=== PATIENT | female | born 1935 | race Caucasian/White ===

== ENCOUNTER 2023-08-11 12:59 | Emergency (ER) | payer MEDICARE, BC, SELFPAY ==
[2023-08-11 13:02] VITALS: BP 175/95
[2023-08-11] MEDS: ADACEL 0.5 ML IM (13:59)
--- NOTE | 2023-08-11 14:27 | ED.GENMED ---
History of Present Illness
General
Chief Complaint: Head Injury
Source: patient, ambulance crew and jail
Exam Limitations: none
Time Seen by Provider: 08/11/23 13:06
Nursing documentation reviewed up to this point in time: agreed with
Travel History
Have you had any contact with someone who has COVID-19?: No
Do you have any symptoms of coronavirus? Fever > 100 degrees, chills, cough, shortness of breath, sore throat, loss of taste or smell, muscle aches, or headache?: No
History of Present Illness
History of Present Illness:
88-year-old female with past medical history of hyperlipidemia, memory loss presenting to the emergency department after she tripped on a curb outside fell on the carpet unable to break her fall with her arms and did hit her left forehead did not
lose consciousness denies taking blood thinners denies significant symptoms at this time other than some achiness to the left forehead where she hit her head. Denies change in vision neck pain numbness weakness
Past History
Past History
ED Past Medical History: Hypothyroidism and Other (OA)
ED Past Surgical History: Orthopedic and Other (Cataracts)
Social History
Tobacco: Non-smoker
Alcohol: None
Drug: None
Personal:
Living: alone
Employment: Retired
Review of Systems
Review of Systems
Allergies reviewed?: Yes
All Other Systems: ROS reviewed and negative except as documented in HPI and ROS
Phy Exam
Physical Exam
Physical Exam:
GENERAL: Alert , in no apparent distress
EYE: pupils equal and reactive
NECK: Supple, no significant adenopathy.
ENT: Laceration to left forehead roughly 1 cm in length some small mount bleeding from the area, o/p clr, mmm.
CARDIAC: Regular rate and rhythm .
LUNGS: Clear breath sounds bilaterally, no acute respiratory distress, no wheezes/rales/rhonchi
ABDOMEN: Soft, without focal tenderness, no r/g, no cvat
NEUROLOGICAL: Alert and oriented, no focal neuro deficits 5-5 upper and lower extremity strength normal sensation were palpated bilaterally normal finger-nose intervention no pronator drift
SKIN: Warm and dry, skin intact.
MUSCULOSKELETAL: No edema, well perfused.
PSYCH: Normal and appropriate interaction.
Course
Orders/Labs/Results
Orders:
Orders
08/11/23 13:17
CT Head W/o Iv Contrast Urgent
Comment:
Reason For Exam: fall hit head
Tetanus/Diphth/Acelpertussis [Adacel] 0.5 ml IM .ONCE ONE
Vital Signs
Initial and Last Documented VS:
Initial Vital Signs
Temp Pulse Resp BP Pulse Ox
98.1 F 105 18 175/95 95
08/11/23 13:02 08/11/23 13:02 08/11/23 13:02 08/11/23 13:02 08/11/23 13:02
Last Documented Vital Signs
Temp Pulse Resp BP Pulse Ox
98.1 F 105 18 175/95 95
08/11/23 13:02 08/11/23 13:02 08/11/23 13:02 08/11/23 13:02 08/11/23 13:02
Procedures
Laceration Closure
Left Forehead:
Status of Wound: clean
Size of Wound in cm: 1
Description of Wound Edges: ragged and surrounded by abrasion
Preparation: cleaned with saline
Anesthesia: 1% Lidocaine with epi
Revision/Debridement: routine- no revision and irrigate-direct pressure
Wound exploration: explored to base- no FB and no tendon involvement
Type of Closure: single layer closure
Skin Closure Material: 4-0 chromic gut
Number of sutures: 1
Additional information:
1 rpnuac-tk-[id number] stitch concerning there was significant bleeding from the area.
MDM/Problems Addressed
MDM/Problems Addressed:
88-year-old female presenting to the emergency department today with concerns of fall as well as laceration to left forehead. Denies loss of consciousness no nausea vomiting. Not on blood thinners. No additional injuries. CT of the head was
obtained without intracranial injury. Laceration was closed with 1 rryfhg-ru-suffd stitch otherwise stable for discharge return precautions given.
*Critical Care Note
Total Time (30-74mins, 75-104mins- exclusive of procedures): Not Applicable
ED Attending Note
-
Portions of this chart may have been created with voice recognition software.� Occasional wrong word or��sound alike� substitutions may have occurred due to the inherent limitations of voice recognition software.
Discharge Plan
Departure
Patient Disposition: Home (Routine Discharge)
Date of Disposition: 08/11/23
Time of Disposition: 14:30
Patient with high blood pressure during this ER visit?: No
Condition: Good
Covid-19: Not Applicable
Discharge Problem:
Forehead laceration
Instructions: Laceration Repair With Stitches (DC)
Prescriptions:
No Action
dapsone 25 MG tablet
25 mg PO BID
Referrals:
Camilo Rehman MD [Family Provider] -
Activity Restrictions/Additional Instructions:
You came to the emergency department today with concerns of laceration to left side of your head. You additionally had a head CT which was normal. The laceration was cleaned thoroughly and closed with 1 absorbable qypvbj-ol-vgiav stitch. Please
keep this area clean and use antibiotic ointment only after 5 days do not dissolve the stitches too soon. Return to the emergency department for any worsening, new or concerning symptoms.
Interventions
Interventions:
*Risk Screen - Suicide Last Done: 08/11/23 13:02
*General Assessment Last Done: 08/11/23 13:02
*Neglect/Abuse Screening Last Done: 08/11/23 13:02
ED- Neurological Assessment Last Done: 08/11/23 13:11
ED-Skin Assessment Last Done: 08/11/23 13:11
[2023-08-11 15:00] VITALS: BP 168/80
--- NOTE | 2023-08-12 13:16 | CM ---
[facility] called to request information to assist patient at Personal snf. Clinicals sent to [facility] for home care follow up.
== END 2023-08-11 15:02 | disposition home or self-care (01) ==
LOC: EMR 12:59
PROVIDERS: EMERGENCY PHYSICIAN Emergency Medicine; FAMILY PHYSICIAN Internal Medicine
DX: S01.81XA Laceration without foreign body of other part of head, initial encounter (principal); W01.0XXA Fall on same level from slipping, tripping and stumbling without subsequent striking against object, initial encounter; Z23 Encounter for immunization
CPT/HCPCS: 99284; 90471; 12011; 70450; 90715

== ENCOUNTER → 2023-11-11 10:11 | Outpatient (REF) | payer MEDICARE, BC, SELFPAY ==
[2023-11-11 12:57] LABS: Vitamin B12 702 pg/ml (239-931)
== END ==
LOC: REG 10:11
PROVIDERS: ATTENDING PHYSICIAN Internal Medicine
DX: R20.2 Paresthesia of skin (principal); G56.03 Carpal tunnel syndrome, bilateral upper limbs
CPT/HCPCS: 36415; 82607

== ENCOUNTER → 2024-01-08 08:29 | Outpatient (REF) | payer MEDICARE, BC, SELFPAY ==
[2024-01-08 10:19] LABS: % Basophils 0.7 % (0-2); % Eosinophils 4.1 % (0-6); % Immature Granulocytes 0.2 % (0-0.5); % Lymphocytes 21.5 % (20.5-51.1); % Monocytes 12.2 % (1.7-9.3); % Neutrophils 61.3 % (42.2-75.2); Absolute Eosinophils 0.2 10^3/uL (0-0.7); Absolute Lymphocytes 0.9 10^3/uL (1.2-3.4); Absolute Monocytes 0.5 10^3/uL (0.1-0.6); Absolute Neutrophils 2.5 10^3/uL (1.4-6.5); Hematocrit 33.7 % (37.0-47.0); Hemoglobin 11.2 g/dL (12.0-16.0); Mean Corp Hgb Conc. 33.2 g/dL (33.0-37.0); Mean Corpuscular Hgb 32.2 pg (27.0-31.0); Mean Corpuscular Volume 96.8 fL (81.0-99.0); Nucleated Red Blood Cells % 0 %; Platelet Count 152 10^3/uL (130-400); Red Blood Cell Count 3.48 10^6/uL (4.20-5.40); Red Cell Dist. Width 13.1 % (11.5-14.5); White Blood Cell Count 4.1 10^3/uL (4.8-10.8)
[2024-01-08 10:54] LABS: ALT (SGPT) 19 U/L (0-35); AST (SGOT) 33 U/L (14-36); Albumin 4.3 g/dl (3.5-5.0); Alkaline Phosphatase 77 U/L (38-126); Blood Urea Nitrogen 19 mg/dl (7-17); Calcium 9.5 mg/dl (8.4-10.2); Carbon Dioxide 27 mmol/L (22-30); Chloride 98 mmol/L (98-107); Glucose 152 mg/dl (70-99); Potassium 4.5 mmol/L (3.5-5.1); Sodium 134 mmol/L (135-145); Total Bilirubin 0.8 mg/dl (0.2-1.3); Total Protein 6.6 g/dl (6.3-8.2); eGFR > 60.00
== END ==
LOC: REG 08:29
PROVIDERS: ATTENDING PHYSICIAN Nurse Practitioner Primary Care; FAMILY PHYSICIAN Dermatology
DX: Z79.899 Other long term (current) drug therapy (principal)
CPT/HCPCS: 36415; 80053; 85025

== ENCOUNTER 2024-01-18 14:17 | Emergency (ER) | payer MEDICARE, BC, SELFPAY ==
[2024-01-18 14:21] VITALS: BP 160/80
--- NOTE | 2024-01-18 14:58 | ED.GENMED ---
History of Present Illness
General
Chief Complaint: Fall
Time Seen by Provider: 01/18/24 14:35
History of Present Illness
History of Present Illness:
88-year-old female presents to the emergency department for evaluation of a ground-level fall with resultant head strike. States she tripped over the curb, there is no loss of consciousness. Did strike her head on the ground. Small abrasions to
the right hand and right elbow are noted. Does not take any blood thinners or antiplatelets. Denies neck pain or chest pain
Past History
Past History
ED Past Medical History: Hypothyroidism and Other (OA)
ED Past Surgical History: Orthopedic and Other (Cataracts)
Social History
Tobacco: Non-smoker
Alcohol: None
Drug: None
Personal:
Living: alone
Employment: Retired
Review of Systems
Review of Systems
Allergies reviewed?: Yes
All Other Systems: ROS reviewed and negative except as documented in HPI and ROS
Phy Exam
Physical Exam
Physical Exam:
GEN: Well appearing, NAD, WDWN
HEENT: Normocephalic and atraumatic; Oral mucosa moist, no scleral icterus, no nasal congestion
Cardiac: Regular rate
Lung: No respiratory distress, no tachypnea
MSK: No gross deformity or injuries
Skin: Good color, no pallor or jaundice, no rashes; Minor abrasions to R elbow and R hand
Neuro: AO x3; CN II-XII grossly intact. BUE strength 5/5 in all peralta, sensation intact and symmetric. BLE strength 5/5 in all peralta, sensation intact and symmetric
Psych: Calm, cooperative
Course
Orders/Labs/Results
Orders:
Orders
01/18/24 15:39
CT Head W/o Iv Contrast Urgent
Comment:
Reason For Exam: fall
Vital Signs
Initial and Last Documented VS:
Initial Vital Signs
Temp Pulse Resp BP Pulse Ox
98.0 F 91 16 160/80 98
01/18/24 14:21 01/18/24 14:21 01/18/24 14:21 01/18/24 14:21 01/18/24 14:21
Last Documented Vital Signs
Temp Pulse Resp BP Pulse Ox
98.0 F 88 18 152/88 99
01/18/24 14:21 01/18/24 18:57 01/18/24 18:57 01/18/24 18:57 01/18/24 18:57
MDM/Problems Addressed
MDM/Problems Addressed:
88-year-old female presents after minor ground-level fall with a positive head strike. CT of the head was obtained due to advanced age and this showed no evidence for acute intracranial hemorrhage. She is clinically stable and suitable for
discharge to home
*Critical Care Note
Total Time (30-74mins, 75-104mins- exclusive of procedures): Not Applicable
ED Attending Note
-
Portions of this chart may have been created with voice recognition software.� Occasional wrong word or��sound alike� substitutions may have occurred due to the inherent limitations of voice recognition software.
Discharge Plan
Departure
Patient Disposition: Home (Routine Discharge)
Date of Disposition: 01/18/24
Time of Disposition: 18:30
Patient with high blood pressure during this ER visit?: Yes
Discharge Problem:
Closed head injury
Instructions: Head Injury in Adults (DC)
Prescriptions:
No Action
dapsone 25 MG tablet
25 mg PO BID
Referrals:
Camilo Rehman MD [Family Provider] -
Interventions
Interventions:
*Nursing Disposition Last Done: 01/18/24 18:59
ED-Musculoskeletal Assessment Last Done: 01/18/24 16:13
ED- Neurological Assessment Last Done: 01/18/24 16:13
ED-Skin Assessment Last Done: 01/18/24 16:13
Discharge Date and Time
Discharge Date/Time: 01/18/24 18:59
Print Language: FAROESE
[2024-01-18 18:57] VITALS: BP 152/88
== END 2024-01-18 18:59 | disposition home or self-care (01) ==
LOC: EMR 14:17
PROVIDERS: EMERGENCY PHYSICIAN Emergency Medicine; FAMILY PHYSICIAN Internal Medicine
DX: S09.90XA Unspecified injury of head, initial encounter (principal); S60.511A Abrasion of right hand, initial encounter; S50.311A Abrasion of right elbow, initial encounter; W10.1XXA Fall (on)(from) sidewalk curb, initial encounter; R03.0 Elevated blood-pressure reading, without diagnosis of hypertension; E03.9 Hypothyroidism, unspecified
CPT/HCPCS: 99284; 70450

== ENCOUNTER → 2024-02-22 13:19 | Outpatient (REF) | payer MEDICARE, BC, SELFPAY ==
[2024-02-22 15:33] LABS: Urine Albumin Negative (Neg - Trace); Urine Bilirubin Negative (Negative); Urine Character Clear (Clear); Urine Color Yellow; Urine Glucose Negative (Negative); Urine Ketone Trace (Negative); Urine Leukocyte 2+ (Negative); Urine Nitrite Positive (Negative); Urine Occult Blood Trace (Negative); Urine Urobilinogen Negative (Neg - 1+)
[2024-02-22 15:54] LABS: Iron 69 ug/dl (37-170)
[2024-02-22 16:03] LABS: Urine Bacteria Many (Negative); Urine Mucus Moderate; Urine Red Blood Cell 0-2 /HPF (0-2); Urine White Cell 70-80 /HPF (0-5)
[2024-02-22 17:02] LABS: Folate 15.5 ng/ml (2.76-20)
== END ==
LOC: REG 13:19
PROVIDERS: ATTENDING PHYSICIAN Internal Medicine
DX: D64.9 Anemia, unspecified (principal); R20.2 Paresthesia of skin
CPT/HCPCS: 36415; 81003; 81015; 82746; 83540

== ENCOUNTER → 2024-03-07 07:06 | Outpatient (REF) | payer MEDICARE, BC, SELFPAY | LOC: EMG 07:06 | PROVIDERS: ATTENDING PHYSICIAN Internal Medicine | DX: G56.03 Carpal tunnel syndrome, bilateral upper limbs (principal); R20.0 Anesthesia of skin | CPT/HCPCS: 95886; 95907 ==

== ENCOUNTER → 2024-03-24 10:43 | Outpatient (REF) | payer MEDICARE, BC, SELFPAY ==
[2024-03-24 11:30] LABS: % Basophils 0.8 % (0-2); % Eosinophils 3.8 % (0-6); % Immature Granulocytes 0.2 % (0-0.5); % Lymphocytes 17.8 % (20.5-51.1); % Monocytes 11.5 % (1.7-9.3); % Neutrophils 65.9 % (42.2-75.2); Absolute Eosinophils 0.2 10^3/uL (0-0.7); Absolute Lymphocytes 0.9 10^3/uL (1.2-3.4); Absolute Monocytes 0.6 10^3/uL (0.1-0.6); Absolute Neutrophils 3.3 10^3/uL (1.4-6.5); Hematocrit 33.2 % (37.0-47.0); Hemoglobin 11.1 g/dL (12.0-16.0); Mean Corp Hgb Conc. 33.4 g/dL (33.0-37.0); Mean Corpuscular Hgb 32.2 pg (27.0-31.0); Mean Corpuscular Volume 96.2 fL (81.0-99.0); Mean Platelet Volume 10.8 fL (7.4-10.4); Nucleated Red Blood Cells % 0 %; Platelet Count 157 10^3/uL (130-400); Red Blood Cell Count 3.45 10^6/uL (4.20-5.40); Red Cell Dist. Width 12.8 % (11.5-14.5)
[2024-03-24 11:57] LABS: ALT (SGPT) 17 U/L (0-35); AST (SGOT) 27 U/L (14-36); Albumin 4.3 g/dl (3.5-5.0); Alkaline Phosphatase 76 U/L (38-126); Blood Urea Nitrogen 20 mg/dl (7-17); Calcium 9.3 mg/dl (8.4-10.2); Carbon Dioxide 25 mmol/L (22-30); Chloride 100 mmol/L (98-107); Glucose 122 mg/dl (70-99); Potassium 4.6 mmol/L (3.5-5.1); Sodium 138 mmol/L (135-145); Total Bilirubin 0.7 mg/dl (0.2-1.3); Total Protein 6.8 g/dl (6.3-8.2); eGFR > 60.00
== END ==
LOC: REG 10:43
PROVIDERS: ATTENDING PHYSICIAN Nurse Practitioner Primary Care; FAMILY PHYSICIAN Internal Medicine
DX: Z79.899 Other long term (current) drug therapy (principal)
CPT/HCPCS: 36415; 80053; 85025

== ENCOUNTER → 2024-05-31 08:49 | Outpatient (REF) | payer MEDICARE, BC, SELFPAY ==
[2024-05-31 09:55] LABS: % Eosinophils 2.1 % (0-6); % Immature Granulocytes 0.2 % (0-0.5); % Lymphocytes 18.5 % (20.5-51.1); % Monocytes 10.7 % (1.7-9.3); % Neutrophils 67.5 % (42.2-75.2); Absolute Basophils 0.1 10^3/uL (0-0.2); Absolute Eosinophils 0.1 10^3/uL (0-0.7); Absolute Monocytes 0.6 10^3/uL (0.1-0.6); Absolute Neutrophils 3.5 10^3/uL (1.4-6.5); Hematocrit 38.2 % (37.0-47.0); Hemoglobin 12.4 g/dL (12.0-16.0); Mean Corp Hgb Conc. 32.5 g/dL (33.0-37.0); Mean Corpuscular Hgb 31.9 pg (27.0-31.0); Mean Corpuscular Volume 98.2 fL (81.0-99.0); Nucleated Red Blood Cells % 0 %; Platelet Count 163 10^3/uL (130-400); Red Blood Cell Count 3.89 10^6/uL (4.20-5.40); White Blood Cell Count 5.1 10^3/uL (4.8-10.8)
[2024-05-31 10:09] LABS: ALT (SGPT) 15 U/L (0-35); AST (SGOT) 26 U/L (14-36); Albumin 4.6 g/dl (3.5-5.0); Alkaline Phosphatase 92 U/L (38-126); Blood Urea Nitrogen 18 mg/dl (7-17); Calcium 9.5 mg/dl (8.4-10.2); Carbon Dioxide 28 mmol/L (22-30); Chloride 98 mmol/L (98-107); Glucose 114 mg/dl (70-99); HDL Cholesterol 90 mg/dl; LDL Cholesterol, Calculated 137 mg/dl; Potassium 4.5 mmol/L (3.5-5.1); Sodium 134 mmol/L (135-145); Total Bilirubin 0.9 mg/dl (0.2-1.3); Total Cholesterol 244 mg/dl (50-199); Total Protein 7.4 g/dl (6.3-8.2); Triglyceride 86 mg/dl (10-149); Very Low Density Lipoprotein 17 mg/dl (0-30); eGFR > 60.00
[2024-05-31 11:25] LABS: Glycohemoglobin (HgbA1c) 4.6 % (4.0-5.6)
== END ==
LOC: RAD 08:49
PROVIDERS: ATTENDING PHYSICIAN Internal Medicine
DX: M15.9 Polyosteoarthritis, unspecified (principal); M25.561 Pain in right knee; E11.9 Type 2 diabetes mellitus without complications; E11.59 Type 2 diabetes mellitus with other circulatory complications; E78.00 Pure hypercholesterolemia, unspecified; Z00.00 Encounter for general adult medical examination without abnormal findings
CPT/HCPCS: 36415; 80053; 80061; 83036; 85025

== ENCOUNTER → 2024-11-15 10:01 | Outpatient (REF) | payer MEDICARE, BC, SELFPAY ==
[2024-11-15 10:35] LABS: % Basophils 1.1 % (0-2); % Eosinophils 2.6 % (0-6); % Immature Granulocytes 0.4 % (0-0.5); % Monocytes 9.8 % (1.7-9.3); % Neutrophils 69.1 % (42.2-75.2); Absolute Basophils 0.1 10^3/uL (0-0.2); Absolute Eosinophils 0.1 10^3/uL (0-0.7); Absolute Lymphocytes 0.9 10^3/uL (1.2-3.4); Absolute Monocytes 0.5 10^3/uL (0.1-0.6); Absolute Neutrophils 3.7 10^3/uL (1.4-6.5); Hematocrit 33.7 % (37.0-47.0); Mean Corp Hgb Conc. 32.6 g/dL (33.0-37.0); Mean Corpuscular Hgb 32.2 pg (27.0-31.0); Mean Corpuscular Volume 98.5 fL (81.0-99.0); Mean Platelet Volume 10.6 fL (7.4-10.4); Nucleated Red Blood Cells % 0 %; Platelet Count 159 10^3/uL (130-400); Red Blood Cell Count 3.42 10^6/uL (4.20-5.40); Red Cell Dist. Width 12.9 % (11.5-14.5); White Blood Cell Count 5.4 10^3/uL (4.8-10.8)
[2024-11-15 11:53] LABS: Potassium 4.8 mmol/L (3.5-5.1)
[2024-11-15 11:56] LABS: ALT (SGPT) 15 U/L (0-35); AST (SGOT) 23 U/L (14-36); Albumin 4.3 g/dl (3.5-5.0); Alkaline Phosphatase 79 U/L (38-126); Blood Urea Nitrogen 18 mg/dl (7-17); Calcium 9.5 mg/dl (8.4-10.2); Carbon Dioxide 27 mmol/L (22-30); Chloride 104 mmol/L (98-107); Glucose 139 mg/dl (70-99); Sodium 138 mmol/L (135-145); Total Bilirubin 0.6 mg/dl (0.2-1.3); eGFR > 60.00
[2024-11-15 11:57] LABS: Total Protein 6.9 g/dl (6.3-8.2)
== END ==
LOC: REG 10:01
PROVIDERS: ATTENDING PHYSICIAN Nurse Practitioner Primary Care; FAMILY PHYSICIAN Internal Medicine
DX: Z79.899 Other long term (current) drug therapy (principal); E11.9 Type 2 diabetes mellitus without complications
CPT/HCPCS: 36415; 80053; 85025

== ENCOUNTER 2025-04-09 10:29 | Emergency (ER) | payer MEDICARE, BC, SELFPAY ==
[2025-04-09] VITALS (9 sets, daily range): BP systolic 144–182; BP diastolic 62–151; BMI 26.1
[2025-04-09] MEDS: ROXICODONE 5 MG PO (11:28)
--- NOTE | 2025-04-09 12:02 | ED.MUSCINJ ---
HPI-Injury
General
Chief Complaint: Fall
Source: patient and family
Exam Limitations: none
Time Seen by Provider: 04/09/25 10:49
Nursing documentation reviewed up to this point in time: agreed with
History of Present Illness-Injury
Is this injury a work related problem?: No
Is pt an associate of [facility]?: No
Initial Injury comments:
89 female
slip and fall getting out of bed this am
right hip/pelvic pain-fell onto hard floor no head strike no neck pain no preceding chest pain or shortness of breath able to move her hip legs do not shorten
Past History
Past History
ED Past Medical History: Hypothyroidism and Other (OA)
ED Past Surgical History: Orthopedic and Other (Cataracts)
Social History
Tobacco: Non-smoker
Alcohol: None
Drug: None
Personal:
Living: alone
Employment: Retired
Phy Exam
Physical Exam
Physical Exam:
Physical Exam
General: no apparent distress, not acutely ill
Neck: No tongue bite no posterior
Heart: s1/s2 regular rate and rhythm, no murmur. equal radial pulses.
Lungs: no acute respiratory distress. clear bilaterally
Abdomen: Soft not tender
Neuro: alert and oriented. no focal neurological deficits
Skin: no rash
Psychiatric: well kept. interactive and cooperative
Extremities: No pain with range of motion of the hip
Injury Course
Orders/Labs/Results
Orders:
Orders
04/09/25 11:22
Oxycodone [Roxicodone] 5 mg PO NOW STA
Pelvis, 1 or 2 Views CR [CR Pelvis - 1 Or 2 Views ] Urgent
Comment:
Reason For Exam: fall
04/09/25 13:28
Physical Therapy Consult [Pt Eval And Treat] Urgent
Activity Level: Ambulate
MDM/Problems Addressed
Differential Diagnosis Includes:
Contusion pelvic fracture doubt hip fracture slip and fall
MDM/Problems Addressed:
Pelvic pain after fall
*Radiology
Radiology exam reviewed: radiology read reviewed
*Pulse Oximetry
SaO2: 99
Oxygen Mode of Delivery: Room air
Patient hypoxic: no
*Critical Care Note
Total Time (30-74mins, 75-104mins- exclusive of procedures): Not Applicable
Update Note
Update Note:
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
Discussed with PT x-ray report noted
Patient did okay with PT
ED Attending Note
-
Portions of this chart may have been created with voice recognition software.� Occasional wrong word or��sound alike� substitutions may have occurred due to the inherent limitations of voice recognition software.
Discharge Plan
Departure
Patient Disposition: Home (Routine Discharge)
Date of Disposition: 04/09/25
Time of Disposition: 14:04
Patient with high blood pressure during this ER visit?: Yes
Condition: Good
Discharge Problem:
Pelvic pain after a fall
Instructions: Contusion (DC), Preventing falls in adults
Prescriptions:
New
oxycodone 5 mg tablet
5 mg PO Q8H PRN (Reason: Pain) Qty: 14 0RF
No Action
acetaminophen [Tylenol Arthritis] 650 mg Tablet Extended Release
650 mg PO Q12H
meloxicam 7.5 mg Tablet
7.5 mg PO DAILY
Referrals:
Camilo Rehman MD [Family Provider, Internal Medicine] - Next open appointment
Interventions
Interventions:
*Risk Screen - Suicide Last Done: 04/09/25 10:32
*General Assessment Last Done: 04/09/25 10:32
*Neglect/Abuse Screening Last Done: 04/09/25 10:32
*ED COVID-19 Vaccine History Last Done: 04/09/25 10:32
*ED Influenza Vaccine History Last Done: 04/09/25 10:32
ED-Musculoskeletal Assessment Last Done: 04/09/25 10:32
ED- Neurological Assessment Last Done: 04/09/25 10:32
ED-Skin Assessment Last Done: 04/09/25 10:32
Discharge Date and Time
Print Language: SYRIAC
--- NOTE | 2025-04-09 14:27 | EDCM ---
Received consult and met with son bedside in ED. [place] apartment at [facility].
I spoke to Marycarmen from PT, she would recommend AL or SNF but family wants pt to return to her apartment and will check on her frequently.
Pt has used [facility] in past and son would like referral sent there, referral sent via [facility].
Pt's son is making arrangements to have wheelchair available for pt at [facility].
== END 2025-04-09 14:25 | disposition home or self-care (01) ==
LOC: EMR 10:29
PROVIDERS: EMERGENCY PHYSICIAN Emergency Medicine; FAMILY PHYSICIAN Internal Medicine
DX: R10.21 Pelvic and perineal pain right side (principal); M25.551 Pain in right hip; W06.XXXA Fall from bed, initial encounter; E03.9 Hypothyroidism, unspecified
CPT/HCPCS: 99283; 72170

== ENCOUNTER → 2025-05-11 07:24 | Outpatient (REF) | payer MEDICARE, BC, SELFPAY | LOC: MRI 07:24 | PROVIDERS: ATTENDING PHYSICIAN Nurse Practitioner Acute Care | DX: M54.42 Lumbago with sciatica, left side (principal) | CPT/HCPCS: 72148 ==

== ENCOUNTER → 2025-05-14 08:08 | Outpatient (REF) | payer MEDICARE, BC, SELFPAY | LOC: MRI 08:08 | PROVIDERS: ATTENDING PHYSICIAN Nurse Practitioner Acute Care | DX: M54.42 Lumbago with sciatica, left side (principal) | CPT/HCPCS: 72146 ==

== ENCOUNTER → 2025-05-17 09:52 | Outpatient (REF) | payer MEDICARE, BC, SELFPAY | LOC: MRI 09:52 | PROVIDERS: ATTENDING PHYSICIAN Nurse Practitioner Acute Care | DX: M54.42 Lumbago with sciatica, left side (principal) | CPT/HCPCS: 72195 ==

== ENCOUNTER 2025-05-22 19:25 | Emergency (ER) | payer MEDICARE, BC, SELFPAY ==
[2025-05-22 19:32] VITALS: BP 141/72
[2025-05-22] MEDS: NORCO 5/325 1 TABLET PO (23:38)
[2025-05-22 23:39] VITALS: BMI 24.3
--- NOTE | 2025-05-23 01:03 | ED.GENMED ---
Addendum entered and electronically signed by Eladio Petersen PA-C 05/23/25 07:19:
Received a call from the radiologist regarding a potential concerning lesion on the patient's liver seen on the CAT scan. I called the patient to notify her of this finding and advised that she follow-up with her family doctor for further
evaluation regarding the liver findings.
Original Note:
History of Present Illness
General
Chief Complaint: Fall
Source: patient and family
Time Seen by Provider: 05/22/25 22:51
History of Present Illness
History of Present Illness:
Note:
CHIEF COMPLAINT(S)
Fall with chest pain
HISTORY OF PRESENT ILLNESS
The patient is an 89-year-old female who presented after a fall in her bathroom. She does not recall how she bumped her left chest area but mentions pain localized to this region. When asked about the specific events of the fall, she stated that she
was reaching for a grab bar and ended up on the floor. The patient denies any head injury or loss of consciousness during the incident. She reports having a prior MRI showing some issues in her back, described as a fracture or crack, but she does
not specify further. Presently, she experiences persistent low back pain, but her chief concern is the sharp chest pain aggravated with breathing. She denies abdominal pain but reports tenderness in the chest. She is scheduled for a follow-up with
her doctor tomorrow regarding her previous injury.
Family states that the patient had a recent injury to her low back. Son also states that her story changed once or twice but she initially reported no pain.
The patient does not take any anticoagulants. She describes her pain as severe and affecting her breathing, which may lead to complications such as pneumonia if not adequately addressed. She is currently on prednisone for back-related symptoms and
takes Tylenol for pain relief. There is a plan to provide stronger pain management, if necessary, and obtain imaging of her ribs and potentially her head to exclude further injury.
PAST MEDICAL AND SURGICAL HISTORY
Patient describes previous fractures or cracks in the lumbar spine.
CHRONIC MEDICAL CONDITIONS SIGNIFICANTLY AFFECTING CARE
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
MEDICATIONS
- Prednisone (dose and frequency not specified)
- Tylenol
REVIEW OF SYSTEMS
- Musculoskeletal: Fall resulting in chest pain, persistent low back pain.
- Respiratory: Pain exacerbated by breathing.
- Neurological: No loss of consciousness; denies headache.
PHYSICAL EXAM
General: Alert, no acute distress.
Skin: Warm, dry.
Head: Normocephalic, atraumatic, no signs of head trauma.
Neck: Supple, trachea midline, no midline C-spine tenderness.
Eye, Ears, Nose, and Throat: Oral mucosa moist.
Cardiovascular: Heart rate regular without murmur, normal peripheral perfusion, no edema.
Respiratory: Equal breath sounds bilaterally, respirations are non-labored.
Gastrointestinal: Abdomen nondistended, no abdominal pain.
Back: Mild pain, no midline thoracic spine tenderness.
Musculoskeletal: Localized left chest tenderness, normal range of motion and strength in all extremities.
Neurological: Alert and oriented to person, place, time, and situation, no focal neurological deficit observed.
Psychiatric: Cooperative, appropriate mood & affect.
PROBLEM LIST
Acute:
- Fall with left chest pain
- Musculoskeletal pain, possible rib fractures
Chronic:
- Lumbar spine fractures
PLAN
1. Order imaging studies of the chest to evaluate for possible rib fractures or lung injury.
2. Consider additional imaging of the head if deemed necessary based on clinical findings.
3. Prescribe pain medication stronger than current regimen, such as hydrocodone, as the patient reports significant pain and has tolerated narcotics previously.
4. Follow up with the primary care physician for management of back-related issues and any new findings on imaging.
DIFFERENTIAL DIAGNOSIS
The Differential Diagnosis includes, in no particular order and is not limited to:
1. Rib fracture
2. Pulmonary contusion
3. Pneumothorax
4. Musculoskeletal strain
5. Vertebral fracture
6. Pleuritis
7. Cardiac contusion
8. Head injury with amnesia
9. Internal bleeding
10. Costochondritis
Disposition:
SUMMARY OF ENCOUNTER
The patient, an 89-year-old female, presented to the emergency department after a fall, experiencing severe left chest pain aggravated by breathing. Imaging was conducted to rule out serious injury. Upon reassessment, the patient reported
significant improvement in pain after administration of hydrocodone-acetaminophen (Vicodin). A CT scan revealed no pneumothorax and no acute rib fractures, but noted age-indeterminate rib deformities that were possibly fractures or old injuries.
DISPOSITION
Discharge.
ASSESSMENT
The clinical findings are consistent with age-indeterminate rib deformities possibly related to a previous injury. No acute traumatic injury detected on CT.
PLAN
Discharge the patient with instructions to use prescribed pain medication as needed and employ incentive spirometry to promote lung function and prevent pneumonia. Patient has a follow-up appointment scheduled with her doctor tomorrow.
PATIENT EDUCATION AND COUNSELING
The patient was advised on the importance of using the incentive spirometer to enhance breathing and prevent complications, and instructed on pain management strategies at home.
FOLLOW-UP INSTRUCTIONS
The patient is instructed to follow up with her primary care physician tomorrow for continued evaluation and management.
MEDICATION RECONCILIATION
Prescription for hydrocodone-acetaminophen for pain management.
MEDICAL DECISION MAKING
- Complexity of Data Reviewed:
- Chronic conditions affecting care [lumbar spine fractures]
- Differential Diagnosis includes: Rib fracture, Pulmonary contusion, Pneumothorax, Musculoskeletal strain, Vertebral fracture, Pleuritis, Cardiac contusion, Head injury with amnesia, Internal bleeding, Costochondritis.
- Data:
Category 1
- A CT scan was independently reviewed indicating no pneumothorax or acute rib fractures, but age-indeterminate rib deformities.
Category 3
- Routinely handled discussions of patient management at the outpatient appointment with her primary care physician.
-Risk: Prescription drug management was initiated to manage pain effectively. Consideration of admission was warranted due to the initial severity of pain and risk for complications; however, stabilization of symptoms and patient comfort with
outpatient care led to discharge recommendation.
DIAGNOSIS
1. Rib pain due to potential fracture, chronic (ICD-10: M25.51)
2. Fall, subsequent encounter (ICD-10: W19.xxxD)
Past History
Past History
ED Past Medical History: Hypothyroidism and Other (OA)
ED Past Surgical History: Orthopedic and Other (Cataracts)
Social History
Tobacco: Non-smoker
Alcohol: None
Drug: None
Personal:
Living: alone
Employment: Retired
Phy Exam
Physical Exam
Physical Exam:
.
Course
Orders/Labs/Results
Orders:
Orders
05/22/25 23:09
CT Chest W/o Iv Contrast Urgent
Comment:
Reason For Exam: fall, L sided pain
Hydrocodone 5/APAP 325 [Morgan 5/325] 1 tablet PO NOW STA
Vital Signs
Initial and Last Documented VS:
Initial Vital Signs
Temp Pulse Resp BP Pulse Ox
97.8 F 86 18 141/72 96
05/22/25 19:32 05/22/25 19:32 05/22/25 19:32 05/22/25 19:32 05/22/25 19:32
Last Documented Vital Signs
Temp Pulse Resp BP Pulse Ox
97.8 F 86 18 141/72 96
05/22/25 19:32 05/22/25 19:32 05/22/25 19:32 05/22/25 19:32 05/22/25 19:32
*Pulse Oximetry
SaO2: 96
Oxygen Mode of Delivery: Room air
Patient hypoxic: no
*Critical Care Note
Total Time (30-74mins, 75-104mins- exclusive of procedures): Not Applicable
ED Attending Note
-
Portions of this chart may have been created with voice recognition software.� Occasional wrong word or��sound alike� substitutions may have occurred due to the inherent limitations of voice recognition software.
Discharge Plan
Departure
Patient Disposition: Home (Routine Discharge)
Date of Disposition: 05/23/25
Time of Disposition: 01:04
Patient with high blood pressure during this ER visit?: Yes
Discharge Problem:
Rib fracture
Instructions: Rib fracture or bruised rib - ED (DC), BLOOD PRESSURE
Prescriptions:
New
hydrocodone-acetaminophen 5-325 mg tablet
1 tab PO Q8H PRN (Reason: Pain) Qty: 10 0RF
No Action
acetaminophen [Tylenol Arthritis] 650 mg Tablet Extended Release
650 mg PO Q12H
meloxicam 7.5 mg Tablet
7.5 mg PO DAILY
oxycodone 5 mg tablet
5 mg PO Q8H PRN (Reason: Pain) Qty: 14 0RF
Referrals:
Camilo Rehman MD [Family Provider, Internal Medicine]
Activity Restrictions/Additional Instructions:
Please use incentive spirometry 10 times every other hour while awake. Return immediately for worsening pain, difficulty breathing, weakness of any kind, fevers or any other concerns.
Interventions
Interventions:
*General Assessment Last Done: 05/22/25 19:32
*Neglect/Abuse Screening Last Done: 05/22/25 19:32
*ED COVID-19 Vaccine History Last Done: 05/22/25 23:25
*ED Influenza Vaccine History Last Done: 05/22/25 23:25
[facility] Risk Assessment Tool Last Done: 05/22/25 23:40
*Risk Screen - Suicide (C-SSRS) Last Done: 05/22/25 19:32
ED-Musculoskeletal Assessment Last Done: 05/22/25 23:25
ED- Neurological Assessment Last Done: 05/22/25 23:25
ED-Skin Assessment Last Done: 05/22/25 23:25
Discharge Date and Time
Print Language: VIETNAMESE
== END 2025-05-23 01:28 | disposition home or self-care (01) ==
LOC: EMR 19:25
PROVIDERS: EMERGENCY PHYSICIAN Emergency Medicine; FAMILY PHYSICIAN Internal Medicine
DX: S22.49XA Multiple fractures of ribs, unspecified side, initial encounter for closed fracture (principal); W19.XXXD Unspecified fall, subsequent encounter; Y92.002 Bathroom of unspecified non-institutional (private) residence as the place of occurrence of the external cause; E03.9 Hypothyroidism, unspecified; M19.90 Unspecified osteoarthritis, unspecified site
CPT/HCPCS: 99284; 71250